=== PATIENT | male | born 1940 | race Caucasian/White ===

== ENCOUNTER → 2019-08-24 | Outpatient (CLI) | payer OTHER, BC ==
[~2019-08-24] VITALS: Ht 175.3 cm; Wt 77.1 kg
[~2019-08-24] MED LIST: ALLOPURINOL 10100 M1 PO; KLOR-CON 10 ER10 MEQ PO; NORVASC5 M1 PO; ZESTRIL40 MG PO
--- NOTE | 2019-08-25 14:07 | PATH ---
[facility] [address] [place] [address] PATHOLOGY RPT PROCEDURE Name: VICKEY JUDGE Room #: REG CLI M.R.#: [id number] Admission: 08/24/19 Date of : 36 Discharge: Report #: [id number] Path Case #: [id number] [facility] Accession Number: [id number] . 01 Material submitted: . PART A: stomach - GASTRIC BIOPSY R/O H. PYLORI PART B: stomach - GASTRIC POLYPS PART C: small bowel - SMALL BOWEL BIOPSY RE:INFLAMMATION . 01 Clinical history: . Pre-OP DX: Anemia Post-OP DX: Gastric polyps, hiatal hernia, gastritis, duodenitis, hemorrhoids, diverticulosis . 02 Diagnosis: A. Gastric biopsy, "gastric biopsy": - Gastroduodenal mucosa with moderate chronic gastritis with intestinal metaplasia and with blunting of villous pattern. - See comment. . B. Gastric biopsy, "gastric polyps": - Hyperplastic polyps. - There is no evidence of adenomatous change, high-grade dysplasia or malignancy. . C. Small intestinal mucosa, "small bowel biopsy": - Focal lamina propria chronic inflammation with possible ulceration. - These findings are consistent with chronic inflammation with some villous pattern blunting, would suggest sprue-like changes. - There is no architectural distortion and good cryptitis to suggest inflammatory bowel disease. - Suggest clinical and endoscopic correlation. . 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 02 Comment: A. Fragments of gastroduodenal mucosa revealing lamina propria inflammation with acute and chronic inflammatory cells admixed with eosinophils and plasma cells. There is blunting of villous pattern. These findings might suggest sprue. The Helicobacter pylori stain is negative. Focal intestinal metaplasia also present. ([facility]:fede; 08/25/2019) . 02 Electronically signed: . Fortino Wolfe MD, Pathologist NPI- [id number] [place] [address] PATHOLOGY RPT PROCEDURE Name: VICKEY JUDGE Room #: REG CLI ..#: [id number] Admission: 08/24/19 Date of : 36 Discharge: Report #: [id number] Path Case #: [id number] . 01 Gross description: . A. Received in formalin labeled "Vickey Judge, gastric BX, rule out H. pylori," are 3 segments of walton soft tissue measuring 1.1 x 1.0 x 0.2 cm in aggregate dimensions and ranging from 0.5 to 0.6 cm in maximum dimension. The specimen is submitted entirely in cassette A1. . B. Received in formalin labeled "Vickey Judge, gastric polyps," are multiple segments of walton soft tissue measuring 1.6 x 1.0 x 0.2 cm in aggregate dimensions. The specimen is filtered and entirely submitted in cassette B1. . C. Received in formalin labeled "Vickey Judge, small bowel BX, re: Inflammation," are 4 segments of walton soft tissue measuring 1.0 x 0.6 x 0.3 cm in aggregate dimensions and ranging from 0.3 to 0.5 cm in maximum dimension. The specimen is submitted entirely in cassette C1. ([facility]; 08/24/2019) TOB/TOB 08/24/2019 2258 Local . 02 Pathologist provided ICD-10: K29.50, K31.7, K52.9 . 02 CPT . 326505, 974851, 940516, J23669 Specimen Comment: A courtesy copy of this report has been sent to [phone] Specimen Comment: Report sent to Performed at: 01 [facility] [address] [id number] MD Oscar Horton MD Phone: [phone] Performed at: 02 [facility] [place] [id number] [address] [id number] MD Tyrone Monreal MD Phone: [phone]
== END | disposition home or self-care (01) ==
LOC: GI 06:57
DX: D64.9 Anemia, unspecified (principal); K29.50 Unspecified chronic gastritis without bleeding; K31.7 Polyp of stomach and duodenum; K52.9 Noninfective gastroenteritis and colitis, unspecified; K29.80 Duodenitis without bleeding; K31.89 Other diseases of stomach and duodenum; K64.8 Other hemorrhoids; K57.30 Diverticulosis of large intestine without perforation or abscess without bleeding; K44.9 Diaphragmatic hernia without obstruction or gangrene; I10 Essential (primary) hypertension; M10.9 Gout, unspecified; Z98.890 Other specified postprocedural states; Z79.899 Other long term (current) drug therapy; Z96.653 Presence of artificial knee joint, bilateral; Z96.612 Presence of left artificial shoulder joint; Z98.41 Cataract extraction status, right eye; Z98.42 Cataract extraction status, left eye
CPT/HCPCS: 62110; 62900

== ENCOUNTER → 2019-11-02 | Outpatient (CLI) | payer OTHER, BC ==
[~2019-11-02] VITALS: Ht 175.3 cm; Wt 77.1 kg
[~2019-11-02] MED LIST changes: +CALCIUM500 MG PO; +MAGNESIUM250 M1 PO; +MULTI VITAMIN1 EACH PO; +OSTEO BI-FLEX1 EAC1 PO; +PROBIOTIC1 EAC7 PO
--- NOTE | 2019-11-05 10:07 | PATH ---
[facility] [address] [place] [address] PATHOLOGY RPT PROCEDURE Name: VICKEY JUDGE Room #: REG CLI M.R.#: [id number] Admission: 11/02/19 Date of : 36 Discharge: Report #: [id number] Path Case #: [id number] [facility] Accession Number: [id number] . 01 Material submitted: . PART A: small bowel - SMALL BOWEL BIOPSY PART B: stomach - GASTRIC ULCER . 01 Clinical history: . None provided . 02 Diagnosis: A. Small bowel mucosa, small bowel, endoscopic biopsy: - Moderate to marked active peptic duodenitis associated with villous blunting in several foci, and findings compatible with ulceration. - Negative for increase in intraepithelial lymphocytes. . B. Gastric mucosa, gastric ulcer, endoscopic biopsy: - Fibrinopurulent material along with granulation tissue, consistent with ulceration. - Intact mucosa showing features of moderate reactive gastropathy with focal intestinal metaplasia. - Negative for atrophy or dysplasia. - Negative for Helicobacter pylori (properly controlled immunohistochemical stain performed). (IUV/db; 11/04/2019) LBQ 11/04/2019 1228 Local . 02 Electronically signed: Eduar Osborn MD, Pathologist NPI- [id number] . 01 Gross description: . A. The specimen is received in formalin, labeled "Vickey Judge, biopsy of small bowel". Received are four segments of pale walton soft tissue ranging in size from 0.2 to 0.5 cm in maximum dimensions. The specimen is submitted entirely in cassette A1. . B. The specimen is received in formalin, labeled "Vickey Judge, gastric ulcer". Received are three segments of pale walton soft tissue ranging in size from 0.3 to 0.5 cm in maximum dimensions. The specimen is submitted entirely in cassette B1. ([facility]; 11/03/2019) QA/QA 11/03/2019 1328 Local . 02 Pathologist provided ICD-10: K29.80, K31.9 [place] [address] PATHOLOGY RPT PROCEDURE Name: VICKEY JUDGE Room #: REG JENNIFER Leyva.#: [id number] Admission: 11/02/19 Date of : 36 Discharge: Report #: [id number] Path Case #: [id number] . 02 CPT . 193059, 140978, [id number] Specimen Comment: A courtesy copy of this report has been sent to [phone] Specimen Comment: [phone] Specimen Comment: Report sent to / DR SIMPSON Specimen Comment: A duplicate report has been generated due to demographic updates. Performed at: [address] [address], [place] [id number] MD Oscar Horton MD Phone: [phone] Performed at: [address] [id number] MD Maria Victoria Osborn MD Phone: [phone]
== END | disposition home or self-care (01) ==
LOC: GI 09:35
DX: D50.9 Iron deficiency anemia, unspecified (principal); K29.70 Gastritis, unspecified, without bleeding; K29.80 Duodenitis without bleeding; K25.9 Gastric ulcer, unspecified as acute or chronic, without hemorrhage or perforation; I10 Essential (primary) hypertension; K31.9 Disease of stomach and duodenum, unspecified; Z98.890 Other specified postprocedural states; Z79.899 Other long term (current) drug therapy; Z96.612 Presence of left artificial shoulder joint; Z96.653 Presence of artificial knee joint, bilateral; Z98.41 Cataract extraction status, right eye; Z98.42 Cataract extraction status, left eye
CPT/HCPCS: 62110; 62900

== ENCOUNTER → 2020-02-15 | Outpatient (CLI) | payer OTHER, BC ==
[~2020-02-15] VITALS: Ht 175.3 cm; Wt 77.1 kg
--- NOTE | 2020-02-16 16:06 | PATH ---
[facility] [address] [place] [address] PATHOLOGY RPT PROCEDURE Name: VICKEY JUDGE Room #: REG CLI M.R.#: [id number] Admission: 02/15/20 Date of : 36 Discharge: Report #: [id number] Path Case #: [id number] [facility] Accession Number: [id number] . 01 Material submitted: . small bowel - BIOPSY OF SMALL BOWEL R/O CROHN'S . 01 Clinical history: . Ulcers and strictures of small bowel, retained foreign body (video capsule) . 02 Diagnosis: Small bowel mucosa, rule out Crohn's, endoscopic biopsy: - Moderate active inflammation associated with ulceration. - Negative for dysplasia or malignancy. Q 02/16/2020 1526 Local . 02 Comment: Examination shows markedly expanded lamina propria by lymphocytes, as well as plasma cells in addition to few acute inflammatory cells. One fragment shows lesser severity. In addition, ulceration as well as granulation tissue are identified. There are no granulomata present. Findings are compatible with the provided clinical concern for "rule out Crohn's disease". Please note ulcerative colitis enters the differential as well. In addition, an infectious etiology, medication/drug induced inflammation amongst other possibilities. History of retained foreign body is noted, and the findings may be suggestive of the same. Please correlate clinically. (IUV/db; 02/16/2020) . 02 Electronically signed: . Maria Victoria Osborn MD, Pathologist NPI- [id number] . 01 Gross description: . . The specimen is received in formalin, labeled "Vickey Judge BX of small bowel rule out Crohn's" and consists of multiple fragments of pink-walton tissue measuring 0.7 x 0.3 x 0.2 cm in aggregate which are entirely submitted in A1. ([facility]; 02/15/2020) JFQ/JFQ 02/15/2020 1609 Local . 02 Pathologist provided ICD-10: K63.89, K52.9 . 02 CPT . [address] [address] PATHOLOGY RPT PROCEDURE Name: VICKEY JUDGE Room #: REG CL Autumn.#: [id number] Admission: 02/15/20 Date of : 36 Discharge: Report #: [id number] Path Case #: [id number] Specimen Comment: A courtesy copy of this report has been sent to [phone] Specimen Comment: [phone] Specimen Comment: Report sent to / DR SIMPSON Performed at: [address] [facility], [place], [place] [id number] MD Oscar Horton MD Phone: [phone] Performed at: [address] [id number] MD Maria Victoria Osborn MD Phone: [phone]
== END | disposition home or self-care (01) ==
LOC: GI 08:33
PROVIDERS: ATTEND Internal Medicine Gastroenterology
DX: T18.3XXA Foreign body in small intestine, initial encounter (principal); K31.9 Disease of stomach and duodenum, unspecified; K57.10 Diverticulosis of small intestine without perforation or abscess without bleeding; K31.89 Other diseases of stomach and duodenum; I10 Essential (primary) hypertension; M10.9 Gout, unspecified; D64.9 Anemia, unspecified; Z96.612 Presence of left artificial shoulder joint; Z11.59 Encounter for screening for other viral diseases; Z98.41 Cataract extraction status, right eye; Z98.42 Cataract extraction status, left eye; Z96.653 Presence of artificial knee joint, bilateral; Z98.890 Other specified postprocedural states; Z79.899 Other long term (current) drug therapy
CPT/HCPCS: 62110; 62900

== ENCOUNTER → 2021-09-11 | Outpatient (CLI) | payer OTHER, BC ==
[~2021-09-11] VITALS: Ht 175.3 cm; Wt 77.1 kg
[~2021-09-11] MED LIST changes: +BUDESONIDE ER9 MG PO; -KLOR-CON 10 ER10 MEQ PO; +KLOR-CON 1010 MEQ PO
--- NOTE | 2021-09-15 19:07 | PATH ---
[facility] [address] [place] [address] PATHOLOGY RPT PROCEDURE Name: VICKEY JUDGE Room #: REG CLI M.R.#: [id number] Admission: 09/11/21 Date of : 36 Discharge: Report #: [id number] Path Case #: [id number] [facility] Accession Number: [id number] . 01 Material submitted: . PART A: small bowel - SMALL BOWEL BIOPSY R/O CROHN'S DISEASE PART B: gastrointestinal site - RANDOM GASTRIC BIOPSY- R/O CROHN'S DISEASE . 01 Clinical history: . EGD GASTRITIS DUODENITIS . 02 Diagnosis: A. Small bowel biopsy: - Duodenal mucosa with ulceration, arising in a background of chronic active duodenitis and areas of villous atrophy. - Negative for granulomatous inflammation, dysplasia, and malignancy. . B. Stomach "random gastric biopsy": - Gastric antral mucosa with features of reactive gastropathy, arising in a background of mildly active chronic gastritis. - Fragment of duodenal or transitional mucosa with mild villous atrophy, foveolar mucinous metaplasia, with background mild chronic active duodenitis. - Negative for granulomatous inflammation, dysplasia, and malignancy. - Please see comment. . ([facility]:fede; 09/15/2021) MBEmmanuel 09/15/2021 1757 Local . 02 Comment: Biopsies from both the duodenum and the stomach show focal active inflammation, arising in a background of reparative/regenerative change. Special stains for Helicobacter pylori are negative. The clinical question of Crohn's disease is noted. Although there is focal active inflammation seen in both the duodenum and the stomach, significant architectural distortion is not evident. Granulomatous inflammation is also not identified, however, this finding is relatively rare in the setting of Crohn's in the upper GI tract. The other notable absence is that of prominent lymphoid aggregates. . Crohn's disease cannot be completely excluded given the current biopsy findings, however the findings are non-specific and not pathognomonic. The differential diagnosis would also include drug/toxic injury. Suggest clinical and endoscopic correlation. . [address] [address] PATHOLOGY RPT PROCEDURE Name: MADHAVKEVINVICKEY Room #: REG CLI Rosa Maria#: [id number] Admission: 09/11/21 Date of : 36 Discharge: Report #: [id number] Path Case #: [id number] ([facility]:fede; 09/15/2021) . 02 Electronically signed: . Radha Zavala MD, Pathologist NPI- [id number] . 01 Gross description: . A. The specimen is received in formalin, labeled "Vickey Judge, small bowel biopsy, rule out Crohn's disease". Received are 3 segments of pale walton tissue ranging in size from 0.2-0.3 cm in maximum dimensions. The specimen is entirely submitted in cassette A1. . B. The specimen is received in formalin, labeled "Vickey Judge, random gastric biopsy, rule out Crohn's disease". Received are multiple segments of pale walton tissue ranging in size from 0.2-0.4 cm in maximum dimensions. The specimen is entirely submitted in cassette B1. ([facility]; 09/11/2021) NRI/NRI 09/11/20212025 Local . 02 Microscopic: . Immunohistochemical stain results (properly controlled): Helicobacter pylori (B1) - negative for organisms. ([facility]:fede; 09/15/2021) . 02 Pathologist provided ICD-10: K29.80, K26.9, K29.50 . 02 CPT . 047246, 082821, Z71255 Specimen Comment: A courtesy copy of this report has been sent to [phone] Specimen Comment: [phone] Specimen Comment: Report sent to / DR SIMPSON Performed at: 01 [facility] [address] [facility] [address] [id number] MD Fortino Wolfe MD Phone: [phone] Performed at: 02 [place] [id number] [address] [id number] MD Tyrone Monreal MD Phone: [phone]
== END | disposition home or self-care (01) ==
LOC: GI 06:53
PROVIDERS: ATTEND Internal Medicine Gastroenterology
DX: K21.9 Gastro-esophageal reflux disease without esophagitis (principal); K29.80 Duodenitis without bleeding; K29.50 Unspecified chronic gastritis without bleeding; K31.5 Obstruction of duodenum; K26.9 Duodenal ulcer, unspecified as acute or chronic, without hemorrhage or perforation; K44.9 Diaphragmatic hernia without obstruction or gangrene; K57.10 Diverticulosis of small intestine without perforation or abscess without bleeding; K31.9 Disease of stomach and duodenum, unspecified; I10 Essential (primary) hypertension; M10.9 Gout, unspecified; Z98.890 Other specified postprocedural states; Z79.899 Other long term (current) drug therapy; Z96.653 Presence of artificial knee joint, bilateral; Z96.612 Presence of left artificial shoulder joint; Z98.41 Cataract extraction status, right eye; Z98.42 Cataract extraction status, left eye; Z20.822 Contact with and (suspected) exposure to COVID-19
CPT/HCPCS: 62110; 62900